=== PATIENT | female | born 1945 | race American Indian/Alaskan Native ===

== ENCOUNTER 2021-12-29 08:19 | Emergency (ER) | payer SELFPAY ==
--- NOTE | 2021-12-29 08:41 | Emergency Department Report ---
HPI - General Chief Complaint: Cardiac Arrest/CPR Time Seen by Provider: 12/29/21 08:36 - HPI HPI: The [facility] and came back and found the patient unresponsive on the floor. He called EMS and they found her unresponsive apneic and pulseless. They intubated her with an IV on her and gave her the ACLS protocol with CPR. She was in asystole the entire time. She has a history of high blood pressure. I was unable to obtain any history regarding the ROS with a past medical history because of the patient being unresponsive. ED Past Medical Hx - Past Medical History Additional medical history: Unable to obtain - Surgical History Additional Surgical History: Unable to obtain ED Review of Systems ROS: Stated complaint: CARDIAC ARREST Other details as noted in HPI Comment: Unobtainable due to pts medical conditions Physical Exam - Physical Exam Physical Exam: Physical Exam Constitutional: General: Intubated unresponsive apneic pulseless HENT: Head: Normocephalic. Eyes: Pupils: Pupils are mid dilated and nonresponsive Neck: Musculoskeletal: Normal range of motion. Cardiovascular: Rate and Rhythm: Absent heart sounds Pulses: Absent Heart sounds: Absent heart sounds Pulmonary: Breath sounds: No wheezing or rales. Abdominal: General: There is no distension. Palpations: There is no mass. Musculoskeletal: Normal range of motion. Skin: General: Skin is cold and dry Neurological: Mental Status: Unresponsive Psychiatric: Unable to evaluate ED Course - Reevaluation(s) Reevaluation #1: 12/29/21 08:40 The patient received 3 rounds of epinephrine on the way to the emergency department. When the patient arrived I verified good endotracheal tube placement with bilateral breath sounds. By then he had been at least 45 minutes since the call came in. The patient was pronounced . I informed the son when he arrived. Critical care attestation.: If time is entered above; I have spent that time in minutes in the direct care of this critically ill patient, excluding procedure time. ED Disposition Clinical Impression: Cardiac arrest Disposition: 20 Is pt being admited?: No Does the pt Need Aspirin: No Condition: Serious
== END 2021-12-29 12:01 ==
LOC: ED 08:19
DX: I46.9 Cardiac arrest, cause unspecified (principal)
CPT/HCPCS: 92950; 99285